=== PATIENT | female | born 1970 | race Caucasian/White ===

== ENCOUNTER → 2016-06-09 | Outpatient (CLI) | payer BC ==
[2016-06-09 09:13] LABS: THYROID STIM HORMONE (HS) 2.1 uIU/ml (0.358-4.75)
[2016-06-09 09:32] LABS: HEMOGLOBIN A1c 5.6 % (4.8-5.6)
== END | disposition home or self-care (01) ==
LOC: LAB 08:00
DX: E11.9 Type 2 diabetes mellitus without complications (principal)

== ENCOUNTER → 2017-02-08 | Outpatient (CLI) | payer OTHER ==
[2017-02-08 08:30] LABS: BASO # 0.1 10*3/uL (0.0-0.1); BASO % 0.8 % (0.0-1.0); EOS # 0.1 10*3/uL (0.0-0.4); EOS % 1.4 % (1.0-4.0); HEMATOCRIT 36.4 % (37.0-47.0); HEMOGLOBIN 11.1 g/dl (12.0-16.0); LYMPH # 3.3 10*3/uL (1.3-4.4); MEAN CELL VOLUME 81.1 fl (81.0-99.0); MEAN CORPUSCULAR HGB 24.7 pg (27.0-31.0); MEAN CORPUSCULAR HGB CONC 30.5 g/dl (33.0-37.0); MEAN PLATELET VOLUME 11.5 fl (9.6-12.3); MONO # 0.5 10*3/uL (0.1-1.0); MONO % 6.4 % (3.0-9.0); NEUT # 3.3 10*3/uL (2.3-7.9); NEUT % 45.1 % (47.0-73.0); PLATELET COUNT AUTOMATED 267 10*3/uL (130-400); RED BLOOD COUNT 4.49 10*6/uL (4.10-5.10); RED CELL DISTRI WIDTH 15.1 % (0-14.5); WHITE BLOOD COUNT 7.2 10*3/uL (4.8-10.8)
[2017-02-08 09:01] LABS: ALBUMIN 3.7 gm/dl (3.1-4.5); ALKALINE PHOSPHATASE 73 U/L (45-117); BUN 11 mg/dl (7-24); CHLORIDE 109 mmol/L (98-107); POTASSIUM 4.1 mmol/L (3.5-5.1); SGOT/AST 13 IU/L (3-35); SGPT/ALT 16 U/L (12-78); SODIUM 138 mmol/L (136-145); TOTAL PROTEIN 7.4 gm/dL (6.4-8.2)
== END | disposition home or self-care (01) ==
LOC: LAB 07:20
DX: E11.9 Type 2 diabetes mellitus without complications (principal); D64.9 Anemia, unspecified

== ENCOUNTER → 2017-03-24 | Outpatient (CLI) | payer OTHER | END | disposition home or self-care (01) | LOC: MAMMO 01:23 | DX: Z12.31 Encounter for screening mammogram for malignant neoplasm of breast (principal) ==

== ENCOUNTER → 2017-03-31 | Outpatient (CLI) | payer OTHER | END | disposition home or self-care (01) | LOC: MAMMO 02:21 | DX: R92.8 Other abnormal and inconclusive findings on diagnostic imaging of breast (principal) ==

== ENCOUNTER → 2018-05-15 | Outpatient (CLI) | payer OTHER | END | disposition home or self-care (01) | LOC: LAB 06:31 | DX: E55.9 Vitamin D deficiency, unspecified (principal) ==

== ENCOUNTER → 2019-03-21 | Outpatient (CLI) | payer BC ==
[~2019-03-21] MED LIST: ASPIRIN CHEWABL81 MG PO; EFFEXOR XR37.5 M1 PO; FIBER THERAPY500 M1 PO; GLUCOPHAGE500 M1 PO; STOOL SOFTENER100 M3 PO; TAMOXIFEN CITRA20 MG PO; VISTARIL25 MG PO
== END | disposition home or self-care (01) ==
LOC: US 01:17
DX: N93.9 Abnormal uterine and vaginal bleeding, unspecified (principal)

== ENCOUNTER 2019-04-19 03:17 | Inpatient (IN) | payer BC ==
[2019-04-14 14:38] VITALS: BP 119/84
[2019-04-19] VITALS (10 sets, daily range): BP systolic 107–146; BP diastolic 53–95
[~2019-04-19] VITALS: Ht 157.4 cm; Wt 89.5 kg
--- NOTE | 2019-04-19 11:30 | NUR ---
PATIENT EXTUBATED BY DR. SMITH IN POST OP.
--- NOTE | 2019-04-19 11:30 | NUR ---
PATIENT PLACED ON VENTILATOR POST OP. SETTINGS: CPAP, PSV +10, FIO2 50%.
--- NOTE | 2019-04-19 13:15 | NUR ---
Time: 1314 A 48 year old FEMALE admitted to under services of YESICA PAZ DO. Pt. arrived via bed from OP/ADMIT. Chief complaint: S/P TOTAL LAPAROSCOPIC HYSTERECTOMY. SUSAN IZQUIERDO
--- NOTE | 2019-04-19 13:36 | NUR ---
MEDICATED WITH PO NORCO ORDERED PER PT REQUEST FOR C/O PAIN TO ABDOMEN RATED 10/10.
--- NOTE | 2019-04-19 14:57 | NUR ---
PATIENT SLEEPING. NO S/S OF DISTRESS NOTED. PRN [id number] CONSIDERED EFFECTIVE.
--- NOTE | 2019-04-19 16:58 | NUR ---
PT HAD EMESIS, C/O NAUSEA, MEDICATED WITH ZOFRAN IV PER PRN ORDER, SEE EMAR. PT CLEANED UP AND IVF INFUSING. CALL LIGHT IN [facility].
--- NOTE | 2019-04-19 17:18 | NUR ---
DR. LANDEROS NOTIFIED OF PT'S N/V. ORDER FOR PHENERGAN OBTAINED.
--- NOTE | 2019-04-19 21:15 | NUR ---
PATIENT MEDICATED WITH TYLENOL PER REQUEST FOR ABD PAIN 10/08. WILL MONITOR
--- NOTE | 2019-04-19 21:43 | NUR ---
PATIENT MEDICATED WITH SIMETHICONE FOR C/O OF GAS. WILL MONITOR
--- NOTE | 2019-04-19 22:00 | NUR ---
Hep Lock discontinued R WRIST. Site Asymptomatic, RUE LIMB RESTRICTION. Pressure applied. Sterile dressing applied. SKYLER TURNER
--- NOTE | 2019-04-19 22:05 | NUR ---
IV started left hand with #22 protective cath after 0 attempts. Site prepped with Chloroprep. Sterile dressing applied. Patient tolerated procedure well. IV infusing at 125 cc/hr. SKYLER TURNER
--- NOTE | 2019-04-19 22:15 | NUR ---
TYLENOL APPEARS EFFECTIVE. PATIENT RESTING QUIETLY IN BED, EYES CLOSED, NO DISTRESS NOTED. CALL LIGHT WITHIN REACH
--- NOTE | 2019-04-19 22:43 | NUR ---
SIMETHICONE APPEARS EFFECTIVE. PATIENT RESTING QUIETLY, EYE CLOSED. NO DISTRESS NOTED. CALL LIGHT WITHIN REACH
[2019-04-20] VITALS: BP 109/57
--- NOTE | 2019-04-20 04:00 | NUR ---
PATIENT RESTING QUIELTY, EYES CLSOED. NO DISTRESS NOTED. CALL LIGHT WITHIN REACH.
--- NOTE | 2019-04-20 06:00 | NUR ---
GALICIA CATH REMOVED PER ORDERS, PATIENT TOELRATED WELL. INFORMED THE NEED TO VOID WITHIN 6HRS, PATIENT STATED UNDERSTANDING
[2019-04-20 07:10] LABS: BASO % 0.2 % (0.0-1.0); EOS % 0.4 % (1.0-4.0); HEMATOCRIT 33.7 % (37.0-47.0); HEMOGLOBIN 10.6 g/dl (12.0-16.0); LYMPH # 4.1 10*3/uL (1.3-4.4); LYMPH % 38.5 % (27.0-41.0); MEAN CELL VOLUME 86.9 fl (81.0-99.0); MEAN CORPUSCULAR HGB 27.3 pg (27.0-31.0); MEAN CORPUSCULAR HGB CONC 31.5 g/dl (33.0-37.0); MEAN PLATELET VOLUME 11.8 fl (9.6-12.3); MONO # 0.7 10*3/uL (0.1-1.0); MONO % 6.4 % (3.0-9.0); NEUT # 5.8 10*3/uL (2.3-7.9); NEUT % 54.2 % (47.0-73.0); PLATELET COUNT AUTOMATED 212 10*3/uL (130-400); RED BLOOD COUNT 3.88 10*6/uL (4.10-5.10); WHITE BLOOD COUNT 10.6 10*3/uL (4.8-10.8)
[2019-04-20 08:00] VITALS: BP 103/61
--- NOTE | 2019-04-20 09:30 | NUR ---
Pediatric Physician Assistant in to talk to patient. Patient states lives at home with her . There are 14 steps in the home. Physician: Davin Ortega Pharmacy: [place] Home health services: none Patient's level of ADLs: INDEPENDENT Patient has working utilities: yes DME: none Follow-up physician's appointment after d/c: she prefers to make her own follow up appt after discharge Does patient want to access PORTAL?: no Discharge plan discussed with patient. She lives at home with her . She is independent in her ADLs and ambulation. Discussed home health care services and she denies any home needs at this time. When medically stable she will be discharged to home. Her will provide transportation on discharge. KENZIE BOWLING
[2019-04-20 12:00] VITALS: BP 103/75
--- NOTE | 2019-04-20 12:19 | NUR ---
Pt medicated with tylenol per prn order for c/o tenderness to abdomen. States she doesn't want toradol. She states she didn't really like the way it made her feel and feels she does not need it.
--- NOTE | 2019-04-20 12:45 | NUR ---
DR. LANDEROS IN AND SAW PT. PLAN FOR DC TODAY.
[2019-04-20] MEDS ORDERED: HYDROCODONE-AC1 EAC1 PO (12:49)
[2019-04-20] MEDS ORDERED: Motrin,Rufen800 MG PO (12:49)
--- NOTE | 2019-04-20 14:10 | NUR ---
Discharged in care of via wheelchair.
== END 2019-04-20 14:10 | disposition home or self-care (01) | DRG 742 ==
LOC: SDC 03:17 → 4E 11:06 → SDC 14:00 → 4E 04-20 14:10
PROVIDERS: ADMIT Obstetrics & Gynecology
PROC: 0UT74ZZ Resection of Bilateral Fallopian Tubes, Percutaneous Endoscopic Approach (ICD-10-PCS; principal; 2019-04-19)
PROC: 0DNU4ZZ Release Omentum, Percutaneous Endoscopic Approach (ICD-10-PCS; principal; 2019-04-19)
PROC: 0UT24ZZ Resection of Bilateral Ovaries, Percutaneous Endoscopic Approach (ICD-10-PCS; principal; 2019-04-19)
PROC: 0UT94ZZ Resection of Uterus, Percutaneous Endoscopic Approach (ICD-10-PCS; principal; 2019-04-19)
DX: N93.9 Abnormal uterine and vaginal bleeding, unspecified (principal); D62 Acute posthemorrhagic anemia; E11.9 Type 2 diabetes mellitus without complications; F41.9 Anxiety disorder, unspecified; F32.9 Major depressive disorder, single episode, unspecified; K21.9 Gastro-esophageal reflux disease without esophagitis; N85.01 Benign endometrial hyperplasia; N73.6 Female pelvic peritoneal adhesions (postinfective); Z85.3 Personal history of malignant neoplasm of breast; Z90.13 Acquired absence of bilateral breasts and nipples; Z98.51 Tubal ligation status; Z79.899 Other long term (current) drug therapy; Z98.891 History of uterine scar from previous surgery

== ENCOUNTER → 2024-08-02 | Outpatient (CLI) | payer OTHER ==
[~2024-08-02] MED LIST changes: +HYDROCODONE-AC1 EAC1 PO; +Motrin,Rufen800 MG PO
[2024-08-02 13:05] LABS: BASO # 0.1 10*3/uL (0.0-0.1); BASO % 0.8 % (0.0-1.0); EOS # 0.1 10*3/uL (0.0-0.4); EOS % 0.8 % (1.0-4.0); HEMATOCRIT 43.8 % (37.0-47.0); MEAN CELL VOLUME 90.9 fl (81.0-99.0); MEAN CORPUSCULAR HGB 29.5 pg (27.0-31.0); MEAN CORPUSCULAR HGB CONC 32.4 g/dl (33.0-37.0); MEAN PLATELET VOLUME 11.5 fl (9.6-12.3); MONO # 0.5 10*3/uL (0.1-1.0); MONO % 6.1 % (3.0-9.0); NEUT # 2.9 10*3/uL (2.3-7.9); NEUT % 37.1 % (47.0-73.0); PLATELET COUNT AUTOMATED 259 10*3/uL (130-400); RED BLOOD COUNT 4.82 10*6/uL (4.10-5.10); RED CELL DISTRI WIDTH 12.2 % (0-14.5); WHITE BLOOD COUNT 7.9 10*3/uL (4.8-10.8)
[2024-08-02 13:22] LABS: ALKALINE PHOSPHATASE 90 U/L (46-116); BUN 11 mg/dl (9-23); CHLORIDE 106 mmol/L (98-107); CHOLESTEROL 171 mg/dL (<200); LDL CHOLESTEROL 97 mg/dL (9-159); POTASSIUM 4.1 mmol/L (3.4-5.1); SGPT/ALT 12 U/L (5-49); TOTAL PROTEIN 7.2 gm/dL (6.0-8.0); TRIGLYCERIDES 67 mg/dl (<150)
== END | disposition home or self-care (01) ==
LOC: LAB 12:51
PROVIDERS: ATTEND Nurse Practitioner Primary Care
DX: E11.9 Type 2 diabetes mellitus without complications (principal); E55.9 Vitamin D deficiency, unspecified; R79.89 Other specified abnormal findings of blood chemistry

== ENCOUNTER → 2025-03-28 | Outpatient (CLI) | payer OTHER ==
[2025-03-28 17:35] LABS: BASO # 0.0 10*3/uL (0.0-0.1); BASO % 0.5 % (0.0-1.0); EOS # 0.1 10*3/uL (0.0-0.4); EOS % 0.6 % (1.0-4.0); MEAN CELL VOLUME 92.1 fl (81.0-99.0); MEAN CORPUSCULAR HGB 30.8 pg (27.0-31.0); MEAN PLATELET VOLUME 11.4 fl (9.6-12.3); MONO # 0.5 10*3/uL (0.1-1.0); MONO % 5.1 % (3.0-9.0); NEUT # 4.3 10*3/uL (2.3-7.9); NEUT % 48.6 % (47.0-73.0); NUCLEATED RED BLOOD CELL 0.0 % (0.0-0.0); NUCLEATED RED BLOOD CELL 0.0 10*3/uL (0.0-0.0); PLATELET COUNT AUTOMATED 245 10*3/uL (130-400); RED CELL DISTRI WIDTH 12.5 % (0-14.5)
[2025-03-28 18:02] LABS: BUN 12 mg/dl (9-23); LDL CHOLESTEROL 80 mg/dL (9-159); SGPT/ALT 12 U/L (5-49); VITAMIN D, 25-HYDROXY 33.0 ng/mL (30-100)
== END | disposition home or self-care (01) ==
LOC: ZRHCWE 17:09
PROVIDERS: ATTEND Nurse Practitioner Family
DX: E11.9 Type 2 diabetes mellitus without complications (principal); E55.9 Vitamin D deficiency, unspecified; M19.90 Unspecified osteoarthritis, unspecified site; F39 Unspecified mood [affective] disorder; Z17.0 Estrogen receptor positive status [ER+]; R79.89 Other specified abnormal findings of blood chemistry; F41.9 Anxiety disorder, unspecified; M25.50 Pain in unspecified joint